=== PATIENT | male | born 1950 | race African-American/Black ===

== ENCOUNTER 2023-09-29 11:14 | Outpatient (REF) | payer OTHER, SELFPAY ==
[2023-09-29 13:03] LABS: MANUAL DIFF FLAG NO
[2023-09-29 13:21] LABS: Basophils Percent Auto 0.4 % (0-2); Eosinophils Percent Auto 0.9 % (0-4); Hematocrit 33.8 % (42.0-52.0); Hemoglobin 11.2 g/dl (14.0-18.0); Imm Gran Abs Auto 0.02 X10*3/uL (0.00-0.03); Imm Gran Pct Auto 0.4 % (0.0-0.4); Lymphocytes Absolute Auto 0.5 X10*3/uL (1.2-4.9); Lymphocytes Percent Auto 10.4 % (20-40); Mean Corpuscular HGB Conc 33.1 g/dl (31.0-36.0); Mean Corpuscular Hemoglobin 33.8 pg (27.0-33.0); Mean Corpuscular Volume 102.1 fL (80.0-98.0); Mean Platelet Volume 11.5 fL (9.4-12.4); Monocytes Absolute Auto 0.6 X10*3/uL (0.1-1.2); Monocytes Percent Auto 12.3 % (2-11); Neutrophils Absolute Auto 3.6 x10*3/uL (2.0-8.3); Neutrophils Percent Auto 75.6 % (45-73); Platelet Count 181 X10*3/uL (160-400); Red Blood Count 3.31 X10*6/uL (4.60-5.80); Red Cell Distribution Width 14.6 % (11.0-16.0); White Blood Count 4.7 X10*3/uL (4.8-10.8)
[2023-09-29 13:22] LABS: Eos%MD 1.1 %; Eosinophils Absolute Auto 0.1 X10*3/uL (0.0-0.4); WBCANC 4.6 X10*3/uL
[2023-10-01 14:14] LABS: Immunoglobulin G Subclass 1 279 mg/dL (382-929); Immunoglobulin G Subclass 2 41 mg/dL (241-700); Immunoglobulin G Subclass 3 22 mg/dL (22-178); Immunoglobulin G Subclass 4 4.6 mg/dL (4-86); Immunoglobulin G Total 375 mg/dL (600-1540)
[2023-10-01 14:18] LABS: Immunoglobulin A 56 mg/dL (70-320)
[2023-10-06 22:08] LABS: Immunoglobulin E <2 kU/L (<OR=114)
== END 2023-09-29 11:15 | disposition home or self-care (01) ==
LOC: HO.HKASLDS 11:14
PROVIDERS: Internal Medicine; Visit Provider Internal Medicine
DX: R05.1 Acute cough (principal)
CPT/HCPCS: 36415; 82784; 82785; 85025